=== PATIENT | male | born 1975 | race Caucasian/White ===

== ENCOUNTER → 2018-01-05 10:28 | Outpatient (CLI) | payer OTHER, SELFPAY ==
[2018-01-05 13:34] LABS: Anion Gap 12 (5-15); BUN 22 mg/dL (7-18); BUN/Creat Ratio 17.7 RATIO (10-20); Calcium,Total 8.9 mg/dL (8.5-10.1); Chloride 103 mmol/L (98-107); Cholesterol 184 mg/dL (200); Creatinine, Serum 1.24 mg/dL (0.70-1.30); EST Glomerular Filtration Rate 67 mL/min (>60); Est Glom Filt Rate - Afr Amer 81 mL/min (>60); Glucose 79 mg/dL (74-106); High Density Lipoprotein 75 mg/dL; Potassium 3.7 mmol/L (3.5-5.1); Sodium Level 138 mmol/L (136-145); Triglycerides 55 mg/dL; Very Low Density Lipoprotein 11 mg/dL (5-40)
== END ==
PROVIDERS: Family Provider Family Medicine; PCP Family Medicine; Visit Provider Family Medicine
DX: I10 Essential (primary) hypertension (principal)
CPT/HCPCS: 36415; 80048; 80061

== ENCOUNTER → 2018-07-08 09:43 | Outpatient (CLI) | payer OTHER, SELFPAY ==
[2018-07-08 12:37] LABS: Anion Gap 10 (5-15); BUN 19 mg/dL (7-18); Chloride 105 mmol/L (98-107); Creatinine, Serum 1.27 mg/dL (0.70-1.30); EST Glomerular Filtration Rate 65 mL/min (>60); Est Glom Filt Rate - Afr Amer 79 mL/min (>60); Glucose 104 mg/dL (74-106); Potassium 3.7 mmol/L (3.5-5.1); Sodium Level 141 mmol/L (136-145); T4 Total, Thyroxin 9.7 ug/dL (4.5-12.1); Thyroid Stim Hormone (TSH) 1.69 uIU/mL (0.358-3.74)
== END ==
PROVIDERS: Family Provider Family Medicine; PCP Family Medicine; Visit Provider Family Medicine
DX: I10 Essential (primary) hypertension (principal); E03.9 Hypothyroidism, unspecified
CPT/HCPCS: 36415; 80048; 84436; 84443

== ENCOUNTER → 2019-01-04 09:30 | Outpatient (CLI) | payer OTHER, SELFPAY ==
[2019-01-04 13:09] LABS: Anion Gap 9 (5-15); BUN 21 mg/dL (7-18); BUN/Creat Ratio 17.6 RATIO (10-20); Calcium,Total 9.3 mg/dL (8.5-10.1); Chloride 103 mmol/L (98-107); Creatinine, Serum 1.19 mg/dL (0.70-1.30); EST Glomerular Filtration Rate 70 mL/min (>60); Est Glom Filt Rate - Afr Amer 85 mL/min (>60); Glucose 85 mg/dL (74-106); Potassium 3.9 mmol/L (3.5-5.1); Sodium Level 136 mmol/L (136-145)
== END ==
PROVIDERS: Family Provider Family Medicine; PCP Family Medicine; Referring Provider Family Medicine; Visit Provider Family Medicine
DX: I10 Essential (primary) hypertension (principal)
CPT/HCPCS: 36415; 80048

== ENCOUNTER → 2019-07-19 10:21 | Outpatient (CLI) | payer OTHER, SELFPAY ==
[2019-07-19 12:58] LABS: Anion Gap 11 (5-15); BUN 20 mg/dL (7-18); BUN/Creat Ratio 14.8 RATIO (10-20); Calcium,Total 8.7 mg/dL (8.5-10.1); Chloride 111 mmol/L (98-107); Creatinine, Serum 1.35 mg/dL (0.70-1.30); EST Glomerular Filtration Rate 60 mL/min (>60); Est Glom Filt Rate - Afr Amer 73 mL/min (>60); Glucose 118 mg/dL (74-106); Sodium Level 143 mmol/L (136-145); T4 Total, Thyroxin 9.1 ug/dL (4.5-12.1); Thyroid Stim Hormone (TSH) 1.82 uIU/mL (0.358-3.74)
== END ==
PROVIDERS: Family Provider Family Medicine; PCP Family Medicine; Referring Provider Family Medicine; Visit Provider Family Medicine
DX: E03.9 Hypothyroidism, unspecified (principal); I10 Essential (primary) hypertension
CPT/HCPCS: 36415; 80048; 84436; 84443

== ENCOUNTER 2022-01-12 23:23 | Emergency (ER) | payer OTHER, SELFPAY ==
[2022-01-12 23:24] VITALS: BP 197/137; PULSE 115; RESP 16; TEMP 36; O2SAT 94; BMI 44.2
[2022-01-12 23:29] VITALS: BP 197/137; PULSE 114; RESP 16; O2SAT 96
--- NOTE | 2022-01-12 23:55 | EKG12_ITS ---
Test Reason : GEN ILL Blood Pressure : / mmHG Vent. Rate : 094 BPM Atrial Rate : 094 BPM P-R Int : 154 ms QRS Dur : 084 ms QT Int : 364 ms P-R-T Axes : 013 -25 088 degrees QTc Int : 455 ms Normal sinus rhythm Left ventricular hypertrophy with repolarization abnormality Abnormal ECG Confirmed by SOL DIAZ, FAISAL ([id number]), graphics editor CAROLE GONZALES ([id number]) on 01/13/2022 10:01:39 AM Referred By: CLARICE Confirmed By:FAISAL HORTON MD
--- NOTE | 2022-01-12 23:57 | EDS_ITS ---
HPI History of Present Illness Chief Complaint: General Illness Narrative Narrative: 46-year-old male presenting with lightheadedness and near syncope for the last few days. He also states that he feels a little bit short of breath. Patient feels nauseous. He states that mostly over the weekend he laid around and felt okay but when he went to work he started to feel like he was going to faint when he went upstairs. He has a history of hypertension which is untreated for at least a year. He states he was on lisinopril. He states he also has hypothyroidism and does not take anything for this either. He believes he used to be on Synthroid. This is also not been taken in about a year. Patient states he drinks Mountain Dew at work but at home he does not really do much caffeine. Patient is not had fever, chills, cough. He has not had diarrhea or constipation. [facility] Medical History Anxiety Hypertension Hypothyroidism Home Medications lisinopril 40 mg PO DAILY #30 tab 01/13/22 [Rx Last Taken Unknown] Allergy/AdvReac Type Severity Reaction Status Date / Time No Known Allergies Allergy Verified 01/12/22 23:24 Social History Smoking Status: Never smoker [facility] ED Constitutional Constitutional ED: Denies chills or fever(s) Eyes Eyes: Denies blurry vision or diplopia ENT ENT ED: Denies rhinorrhea or sore throat Cardiovascular Cardiovascular: Reports other Details: Near syncope ; Denies chest pain or palpitations Respiratory/Chest Respiratory/Chest: Reports dyspnea; Denies cough Gastrointestinal Gastrointestinal: Reports nausea; Denies abdominal pain, constipation, diarrhea or vomiting Genitourinary Genitourinary ED: Denies dysuria or hematuria Musculoskeletal Musculoskeletal: Denies arthralgias, back pain, myalgias or neck pain Integumentary Denies rash Neurologic Neurologic: Reports headache(s); Denies paresthesias or weakness Psychiatric Psychiatric: Denies anxiety or depression EXAM Physical Exam Const Vital Signs: 01/12/22 23:24 01/12/22 23:29 01/13/22 00:08 Temperature 96.8 F L Temperature Source Temporal Pulse Rate 115 H 114 H Respiratory Rate 16 16 Respiratory Effort Normal Respiratory Pattern Normal Blood Pressure 197/137 H 197/137 H Blood Pressure Mean 157 157 Pulse Ox 94 96 Oxygen Delivery Method Room Air Room Air Room Air 01/13/22 00:13 01/13/22 00:34 01/13/22 01:19 Temperature Temperature Source Pulse Rate 102 H 92 86 Respiratory Rate 18 24 H 21 H Respiratory Effort Respiratory Pattern Blood Pressure 200/137 H 161/114 H 156/115 H Blood Pressure Mean 158 129 128 Pulse Ox 94 93 92 Oxygen Delivery Method Room Air Room Air Room Air 01/13/22 02:19 Temperature Temperature Source Pulse Rate 87 Respiratory Rate 18 Respiratory Effort Respiratory Pattern Blood Pressure 144/92 H Blood Pressure Mean 109 Pulse Ox 92 Oxygen Delivery Method Room Air Positive obese and unkempt Constitutional Narrative: Has grayish chemicals on the legs and face from work. General Appearance ED: unkempt and NAD; Negative for pallor Nutritional Appearance: obese HEENT Reports moist mucous membranes Negative for trauma Eyes PERRL and EOMs intact bilaterally General Eye ED: Negative for pale conjunctiva Neck no lymphadenopathy and supple Resp normal respiratory effort and clear to auscultation bilaterally Cardio regular rate Rate: tachycardic GI normal to inspection, nondistended, normoactive bowel sounds Extremity General Extremety ED: Negative for edema or tenderness General Extremity: Negative for edema Neuro oriented x3 and CN's II-XII intact bilaterally Sensorium / Orientation: alert Psych mental status grossly normal Appearance: unkempt Skin no rashes or lesions noted General Skin Exam: Negative for pallor MDM MDM MDM Narrative Medical decision making narrative: Patient presenting with elevated blood pressure, lightheadedness, near syncope. He states that while climbing stairs at work he became lightheaded like he was going to faint and felt like he had to take a deep breath. He states that otherwise he does not have shortness of breath. He has not had a cough, fever, chills. He denies any sort of chest pain. Patient does state that he is noncompliant with his blood pressure medications and has not taken any Synthroid. His blood pressure was elevated at 200/137. He is given a dose of labetalol 20 mg IV. His EKG shows a normal s inus rhythm with a ventricular 94 bpm with LVH noted on my interpretation. Chest x-ray on my interpretation shows no acute cardiopulmonary process and the radiologist agree. CT of the brain is negative for acute intracranial pathology. CBC shows his white blood cell count is 9.4, hemoglobin 17.9, hematocrit 51.3, platelets 312. Creatinine slightly elevated at 1.42. In 2019 it was 1.35 so this is not a significant interval change. TSH, T3, T4 all within normal limits. BNP within normal limits 81.9. Patient's blood pressure did improve to 161/114. I will give him a second dose of labetalol 20 mg. I had a long discussion with him about compliance with blood pressure medications. He will need to keep a blood pressure diary. He was previously on lisinopril but does not know the dose based on his elevated blood pressure I will start him on lisinopril 40 mg p.o. daily. He will follow-up with his PCP outpatient medication adjustment. Blood pressure is now 144/92. Patient feels improved. At this point I will discharge the patient home to follow-up with his PCP. He is given return precautions. Impression: 1. Hypertension 2. Medical noncompliance 3. Near syncope Lab Data Attestation: I reviewed the patient's lab results. Labs: Laboratory Results - last 24 hr 01/13/22 01/13/22 01/13/22 00:05 00:05 00:05 WBC 9.4 RBC 5.91 Hgb 17.9 H Hct 51.3 MCV 86.8 MCH 30.3 MCHC 34.9 RDW Std Deviation 42.8 RDW Coeff of Marcia 13.4 Plt Count 312 MPV 9.2 Immature Gran % (Auto) 0.400 Neut % (Auto) 79.0 H Lymph % (Auto) 14.3 L Harding % (Auto) 4.7 Eos % (Auto) 1.0 Baso % (Auto) 0.6 Absolute Neuts (auto) 7.5 Absolute Lymphs (auto) 1.35 Nucleated RBC % 0 Sodium 136 Potassium 4.3 Chloride 105 Carbon Dioxide 26.0 Anion Gap 5 BUN 17 Creatinine 1.42 H Estim Creat Clear Calc 61.55 Est GFR (MDRD) Af Amer 68 Est GFR (MDRD) Non-Af 56 L BUN/Creatinine Ratio 12.0 Glucose 214 H Calcium 9.3 Troponin I High Sens 26 B-Natriuretic Peptide 81.9 TSH 3.25 Free T4 0.92 Free T3 pg/dL 2.7 Radiography Diagnostic Testing: Clinical Impression(s) from Imaging Studies Brain CT 01/12/22 23:58 IMPRESSION: Negative head/brain CT without intravenous contrast. Individualized dose optimization techniques were used for this CT. at 0035 Reported and signed by: Lino Nguyen MD Electronically Signed: Lino Nguyen MD at 0:34 EST Reading Location ID and State: [address] [place] [address] Tel , Service support , Chest X-Ray 01/13/22 00:01 IMPRESSION: No radiographic evidence of acute cardiopulmonary disease. at 0035 Reported and signed by: Lino Nguyen MD Electronically Signed: Lino Nguyen MD at 0:35 EST Reading Location ID and State: [facility] / [place] Tel , Service support , Discharge Plan Triage Chief Complaint: General Illness ED Provider: Jose Juan Masters Dx/Rx/DC Orders Instructions: ED Hypertension, Established Prescriptions: New lisinopril 40 mg tablet 40 mg PO DAILY Qty: 30 RF: 0 Primary Care Provider: Laure Campo Referrals: Laure Campo MD [Primary Care Provider] - Disposition Disposition: Home, Self Care Discharge Date/Time: 01/13/22 02:27
--- NOTE | 2022-01-12 23:58 | CT_ITS ---
EXAM: CT HEAD WITHOUT INTRAVENOUS CONTRAST : 1975 CLINICAL INDICATION: hypertension TECHNIQUE: Multiple axial images were obtained of the head without intravenous contrast. This CT exam was performed using one or more of the following dose reduction techniques: automated exposure control, adjustment of the mA and/or kV according to patient size, and/or use of iterative reconstruction technique. This report was created using [employer] report generation technology. COMPARISON: None. FINDINGS: BRAIN AND EXTRA-AXIAL SPACES: Unremarkable. No intra- or extra-axial hemorrhage. No evidence of acute infarct. No intracranial mass or mass effect. There is preservation of the lee/white matter interface. Posterior fossa structures are unremarkable. Ventricles are appropriate for age. No hydrocephalus. Basal cisterns are patent. BONES/JOINTS: Unremarkable. No discrete lytic or blastic abnormalities. SINUSES: Unremarkable as visualized. Clear. MASTOID AIR CELLS: Unremarkable. Clear. ORBITS: Visualized globes, extraocular muscles, optic nerves and retrobulbar fat appear unremarkable. CT/Brain/Head without Contrast IMPRESSION: Negative head/brain CT without intravenous contrast. Individualized dose optimization techniques were used for this CT. at 0035 Reported and signed by: Lino Nguyen MD Electronically Signed: Lino Nguyen MD at 0:34 EST ,
--- NOTE | 2022-01-13 00:01 | RAD_ITS ---
EXAM: XR CHEST, 1 VIEW : 1975 CLINICAL INDICATION: dyspnea TECHNIQUE: Frontal view of the chest. This report was created using [employer] report generation technology. COMPARISON: None. FINDINGS: LUNGS AND PLEURAL SPACES: Unremarkable. No consolidation or edema. No pneumothorax. No effusion. HEART: Unremarkable. Cardiac silhouette not enlarged. MEDIASTINUM: Central airways and mediastinal contour are unremarkable. BONES/JOINTS: Unremarkable. SOFT TISSUES: Unremarkable. RAD/Chest 1 View (Portable) IMPRESSION: No radiographic evidence of acute cardiopulmonary disease. at 0035 Reported and signed by: Lino Nguyen MD Electronically Signed: Lino Nguyen MD at 0:35 EST ,
[2022-01-13] MEDS: Labetalol (Prefilled) 20 MG/4 ML IV ×2 (00:10→01:18)
[2022-01-13 00:13] VITALS: BP 200/137; PULSE 102; RESP 18; O2SAT 94
[2022-01-13 00:17] LABS: Absolute Lymphocyte Count 1.35 X10^3/uL (0.83-4.51); Absolute Neutrophil Count 7.5 X10^3/uL (2.0-7.7); Basophil# 0.06 X10^3/uL; Basophil% 0.6 % (0-1); Eosinophil# 0.09 X10^3/uL; Hematocrit 51.3 % (40-54); Hemoglobin 17.9 g/dL (13.0-16.5); Lymphocyte # 1.35 X10^3/ul (0.83-4.51); Lymphocyte % 14.3 % (19-41); Mean Corp Hgb Conc 34.9 g/dL (32-36); Mean Corpuscular Hgb 30.3 pg (27.0-32.0); Mean Corpuscular Volume 86.8 fL (80-94); Mean Platelet Vol. 9.2 fl (6.2-12.0); Monocyte# 0.44 X10^3/uL; Monocyte% 4.7 % (0-10); NRBC Flagged by Analyzer 0 % (0-5); Neutrophil # 7.45 X10^3/uL (2.7-7.7); Platelet Count 312 K/mm3 (150-450); RBC Distribution Width CV 13.4 % (11.6-14.6); RBC Distribution Width SD 42.8 fl (35.1-43.9); Red Blood Count 5.91 M/mm3 (4.6-6.2); White Blood Count 9.4 K/mm3 (4.4-11.0)
[2022-01-13 00:34] VITALS: BP 161/114; PULSE 92; RESP 24; O2SAT 93
[2022-01-13 00:43] LABS: Anion Gap 5 (5-15); BUN 17 mg/dL (7-18); Calcium,Total 9.3 mg/dL (8.5-10.1); Chloride 105 mmol/L (98-107); Creatinine, Serum 1.42 mg/dL (0.70-1.30); EST Glomerular Filtration Rate 56 mL/min (>60); Est Glom Filt Rate - Afr Amer 68 mL/min (>60); Estimated Creatinine Clearance 61.55 ml/min; Free T3 2.7 pg/mL (2.18-3.98); Glucose 214 mg/dL (74-106); Potassium 4.3 mmol/L (3.5-5.1); Sodium Level 136 mmol/L (136-145); T4 Free Direct 0.92 ng/dL (0.76-1.46); Thyroid Stim Hormone (TSH) 3.25 uIU/mL (0.358-3.74); Troponin-I HS 26 pg/mL (3.0-78.0)
[2022-01-13 00:49] LABS: BNP,B-Type NATRIURETIC PEPTIDE 81.9 pg/mL (0-100)
[2022-01-13 01:19] VITALS: BP 156/115; PULSE 86; RESP 21; O2SAT 92
[2022-01-13 02:19] VITALS: BP 144/92; PULSE 87; RESP 18; O2SAT 92
== END 2022-01-13 02:27 | disposition home or self-care (01) ==
PROVIDERS: Emergency Provider Student in an Organized Health Care Education/Training Program; PCP Family Medicine; Visit Provider Student in an Organized Health Care Education/Training Program
DX: R55 Syncope and collapse (principal); Z91.19 Patient's noncompliance with other medical treatment and regimen; R42 Dizziness and giddiness; I10 Essential (primary) hypertension; E03.9 Hypothyroidism, unspecified; F41.9 Anxiety disorder, unspecified; Z79.899 Other long term (current) drug therapy; R06.02 Shortness of breath
CPT/HCPCS: 70450; 71045; 80048; 83880; 84439; 84443; 84481; 84484; 85025; 93005; 99284; A4216

== ENCOUNTER 2022-01-15 02:12 | Emergency (ER) | payer OTHER, SELFPAY ==
[2022-01-15 02:13] VITALS: BP 172/118; PULSE 102; RESP 15; TEMP 36.2; O2SAT 98; BMI 44.4
--- NOTE | 2022-01-15 03:01 | EKG12_ITS ---
Test Reason : DYSRHYTHMIA Blood Pressure : / mmHG Vent. Rate : 092 BPM Atrial Rate : 092 BPM P-R Int : 160 ms QRS Dur : 080 ms QT Int : 354 ms P-R-T Axes : 027 -26 079 degrees QTc Int : 437 ms Normal sinus rhythm Inferior infarct , age undetermined Abnormal ECG Confirmed by SOL DIAZ, FAISAL ([id number]), image editor CAROLE GONZALES ([id number]) on 01/16/2022 8:37:49 AM Referred By: SOLO Confirmed By:FAISAL HORTON MD
[2022-01-15] MEDS: cloNIDine HCl 0.2 MG Tablet PO (03:14)
[2022-01-15] MEDS: Labetalol (Prefilled) 20 MG/4 ML IV (03:19)
--- NOTE | 2022-01-15 03:48 | EX.ED.DYSGE1 ---
HPI History of Present Illness Chief Complaint: Hypertension Narrative Narrative: Patient is a 46-year-old male who was seen just 2 days ago for the same complaint. At that time he underwent chest x-ray head CT EKG basic blood work all which revealed no clinically significant findings and was discharged home on lisinopril. Patient states that he just filled the prescription and has only had 1 dose of it. He states this evening he was feeling palpitations and lightheadedness and checked his blood pressure and it was still elevated. He states that this concerned him and therefore he presents to the ER for repeat evaluation. He denies any illicit drug use or excessive stimulant use [facility] Medical History Anxiety Hypertension Hypothyroidism Home Medications lisinopril 40 mg PO DAILY #30 tab 01/13/22 [Rx Last Taken Unknown] metoprolol succinate 50 mg PO DAILY 30 Days #30 tab 01/15/22 [Rx Last Taken Unknown] Allergy/AdvReac Type Severity Reaction Status Date / Time No Known Allergies Allergy Verified 01/15/22 02:17 Social History Smoking Status: Never smoker [facility] ED Constitutional Constitutional ED: Denies chills or fever(s) ENT ENT ED: Denies sore throat Cardiovascular Cardiovascular: Reports palpitations; Denies chest pain Respiratory/Chest Respiratory/Chest: Denies cough or dyspnea Gastrointestinal Gastrointestinal: Denies abdominal pain, diarrhea, nausea or vomiting Genitourinary Genitourinary ED: Denies dysuria Musculoskeletal Musculoskeletal: Denies myalgias Integumentary Denies rash Neurologic Neurologic: Reports other Details: Positive lightheadedness ; Denies headache(s) Hematologic/Lymphatic Hematologic/Lymphatic: Denies easy bleeding or easy bruising EXAM Physical Exam Const Vital Signs: 01/15/22 02:13 01/15/22 02:18 01/15/22 03:56 Temperature 97.1 F L Temperature Source Temporal Pulse Rate 102 H Respiratory Rate 15 Respiratory Effort Normal Non-Labored Respiratory Pattern Normal Blood Pressure 172/118 H 152/114 H Blood Pressure Mean 136 126 Pulse Ox 98 Oxygen Delivery Method Room Air 01/15/22 04:30 01/15/22 04:35 01/15/22 04:52 Temperature Temperature Source Pulse Rate 75 78 Respiratory Rate 16 18 Respiratory Effort Respiratory Pattern Blood Pressure 171/119 H 155/101 H 144/101 H Blood Pressure Mean 136 119 Pulse Ox 96 Oxygen Delivery Method Positive well nourished and well developed General Appearance ED: well developed Eyes PERRL and EOMs intact bilaterally Neck supple Neck Narrative: No carotid bruit noted Resp normal respiratory effort and clear to auscultation bilaterally Cardio regular rate and regular rhythm Rate: other Other Details: Radial pulses are +2-4 bilaterally are equal and symmetric GI normal to inspection, nondistended, normoactive bowel sounds, non-tender, non-distended and no masses GI Narrative: No guarding or rigidity no pulsatile mass Auscultation: normoactive bowel sounds Palpation: soft Extremity normal to inspection Neuro oriented x3 and CN's II-XII intact bilaterally Neuro Narrative: NIH stroke scale score of 0 Sensorium / Orientation: alert Motor Exam: strength 5/5 throughout Psych Mood & Affect: anxious Skin no rashes or lesions noted MDM MDM MDM Narrative Medical decision making narrative: Patient presented to the ER hypertensive but otherwise awake and alert with normal neurologic exam and no findings to suggest stroke or hypertensive encephalopathy. He was just evaluated with head CT chest x-ray blood work 2 days ago always revealed no clinically significant finding. Moreover he is only had 1 dose of his lisinopril. Therefore do not feel there is need for repeat imaging or laboratory studies. An EKG was obtained because of the reported palpitations which showed normal sinus rhythm. Patient was medicated in the ER with labetalol and clonidine. His blood pressure reduced by approximately 25% and patient reported feeling better. Therefore at this time as he has no signs of endorgan damage and we have had improvement in his hypertension he does not need admitted or further evaluated. He will have metoprolol added to his lisinopril as it appears he will need more than 1 medication to control hypertension but is otherwise safe for discharge Discharge Plan Triage Chief Complaint: Hypertension ED Provider: Raymon Sanchez Dx/Rx/DC Orders Clinical Impression: Accelerated hypertension Instructions: ED Hypertension New Begin Treatment Prescriptions: New metoprolol succinate 50 mg tablet extended release 24 hr 50 mg PO DAILY 30 Days Qty: 30 RF: 0 No Action lisinopril 40 mg tablet 40 mg PO DAILY Qty: 30 RF: 0 Primary Care Provider: Laure Campo Referrals: Laure Campo MD [Primary Care Provider] - Activity Restrictions/Additional Instructions: Please continue your lisinopril as previously directed but add metoprolol also once a day for improved blood pressure control Disposition Disposition: Home, Self Care Discharge Date/Time: 01/15/22 04:53
[2022-01-15 03:56] VITALS: BP 152/114
[2022-01-15] MEDS: Labetalol 100 MG/20 ML Vial 20 MG IV (04:29)
[2022-01-15 04:30] VITALS: BP 171/119; PULSE 75; RESP 16
[2022-01-15 04:35] VITALS: BP 155/101
[2022-01-15 04:52] VITALS: BP 144/101; PULSE 78; RESP 18; O2SAT 96
--- NOTE | 2022-01-16 14:30 | CASEMGMT ---
LEROY LOVELACE ED follow-up: Date of ER visit: 01/15/2022 Presenting ER complaint: hypertension RN [place] placed call to patient's telephone number listed on demographics with no answer. Voice message left with call back information requesting return call if any questions, needs or concerns. LEROY Esparza CM
== END 2022-01-15 04:53 | disposition home or self-care (01) ==
PROVIDERS: Emergency Provider Emergency Medicine; PCP Family Medicine; Visit Provider Emergency Medicine
DX: I10 Essential (primary) hypertension (principal); E03.9 Hypothyroidism, unspecified; F41.9 Anxiety disorder, unspecified
CPT/HCPCS: 93005; 99283; A4216

== ENCOUNTER 2022-01-28 11:50 | Outpatient (CLI) | payer OTHER, SELFPAY ==
[2022-01-28 15:23] LABS: ALB/GLOB Ratio 0.8 RATIO (0.9-2.4); AST(SGOT) 27 U/L (15-37); Alanine Aminotransfer ALT/SGPT 39 U/L (16-61); Albumin, Serum 3.6 g/dL (3.2-5.0); Alkaline Phosphatase 90 U/L (45-117); Anion Gap 6 (5-15); BUN 21 mg/dL (7-18); BUN/Creat Ratio 16.7 RATIO (10-20); Calcium,Total 9.7 mg/dL (8.5-10.1); Chloride 104 mmol/L (98-107); Creatinine, Serum 1.26 mg/dL (0.70-1.30); EST Glomerular Filtration Rate 65 mL/min (>60); Est Glom Filt Rate - Afr Amer 78 mL/min (>60); Ferritin 283 ng/mL (26-388); Globulin 4.4 g/dL (2.2-4.2); Glucose 124 mg/dL (74-106); Iron 72 ug/dL (65-175); Iron Binding Capacity,Total 293 ug/dL (250-450); Potassium 4.4 mmol/L (3.5-5.1); Sodium Level 135 mmol/L (136-145)
[2022-01-29 12:14] LABS: Hemoglobin A1c 5.9 % (3.8-5.6)
[2022-01-30 10:06] LABS: Transferrin 232 mg/dL (177-329)
== END 2022-01-28 23:59 | disposition home or self-care (01) ==
LOC: MFPLAB 11:51
PROVIDERS: PCP Family Medicine; Referring Provider Family Medicine; Visit Provider Family Medicine
DX: R73.09 Other abnormal glucose (principal)
CPT/HCPCS: 36415; 80053; 82728; 83036; 83540; 83550; 84466

== ENCOUNTER 2022-02-03 12:00 | Outpatient (CLI) | payer OTHER, SELFPAY ==
[2022-02-03 15:38] LABS: Absolute Lymphocyte Count 2.28 X10^3/uL (0.83-4.51); Absolute Neutrophil Count 7.4 X10^3/uL (2.0-7.7); Basophil# 0.06 X10^3/uL; Basophil% 0.6 % (0-1); Eosinophil# 0.15 X10^3/uL; Eosinophils% 1.4 % (0-5); Hematocrit 50.8 % (40-54); Hemoglobin 16.5 g/dL (13.0-16.5); Lymphocyte # 2.28 X10^3/ul (0.83-4.51); Lymphocyte % 21.5 % (19-41); Mean Corp Hgb Conc 32.5 g/dL (32-36); Mean Corpuscular Hgb 29.6 pg (27.0-32.0); Mean Corpuscular Volume 91.2 fL (80-94); Mean Platelet Vol. 9.8 fl (6.2-12.0); Monocyte# 0.65 X10^3/uL; Monocyte% 6.1 % (0-10); NRBC Flagged by Analyzer 0 % (0-5); Neutrophil # 7.41 X10^3/uL (2.7-7.7); Platelet Count 341 K/mm3 (150-450); RBC Distribution Width CV 13.5 % (11.6-14.6); RBC Distribution Width SD 45.5 fl (35.1-43.9); Red Blood Count 5.57 M/mm3 (4.6-6.2); White Blood Count 10.6 K/mm3 (4.4-11.0)
== END 2022-02-03 23:59 | disposition home or self-care (01) ==
LOC: MFPLAB 12:02
PROVIDERS: PCP Family Medicine; Referring Provider Family Medicine; Visit Provider Family Medicine
DX: D75.1 Secondary polycythemia (principal)
CPT/HCPCS: 36415; 85025

== ENCOUNTER 2022-02-04 16:36 | Outpatient (CLI) | payer OTHER, SELFPAY ==
[2022-02-04 17:36] LABS: Absolute Lymphocyte Count 2.56 X10^3/uL (0.83-4.51); Absolute Neutrophil Count 8.9 X10^3/uL (2.0-7.7); Basophil# 0.07 X10^3/uL; Basophil% 0.6 % (0-1); Eosinophil# 0.09 X10^3/uL; Eosinophils% 0.7 % (0-5); Hematocrit 51.4 % (40-54); Hemoglobin 16.9 g/dL (13.0-16.5); Lymphocyte # 2.56 X10^3/ul (0.83-4.51); Lymphocyte % 20.3 % (19-41); Mean Corp Hgb Conc 32.9 g/dL (32-36); Mean Corpuscular Hgb 29.8 pg (27.0-32.0); Mean Corpuscular Volume 90.7 fL (80-94); Mean Platelet Vol. 9.6 fl (6.2-12.0); Monocyte# 0.89 X10^3/uL; Monocyte% 7.1 % (0-10); NRBC Flagged by Analyzer 0 % (0-5); Neutrophil # 8.94 X10^3/uL (2.7-7.7); Neutrophil % 70.8 % (47-70); Platelet Count 371 K/mm3 (150-450); RBC Distribution Width CV 13.7 % (11.6-14.6); RBC Distribution Width SD 45.7 fl (35.1-43.9); Red Blood Count 5.67 M/mm3 (4.6-6.2); White Blood Count 12.6 K/mm3 (4.4-11.0)
[2022-02-04 18:16] LABS: Hemoglobin A1c 5.9 % (3.8-5.6)
[2022-02-04 18:23] LABS: Anion Gap 7 (5-15); BUN 17 mg/dL (7-18); BUN/Creat Ratio 15.2 RATIO (10-20); Chloride 107 mmol/L (98-107); Creatinine, Serum 1.12 mg/dL (0.70-1.30); EST Glomerular Filtration Rate 74 mL/min (>60); Est Glom Filt Rate - Afr Amer 90 mL/min (>60); Glucose 108 mg/dL (74-106); Potassium 4.6 mmol/L (3.5-5.1); Sodium Level 139 mmol/L (136-145)
== END 2022-02-04 23:59 | disposition home or self-care (01) ==
LOC: MFPLAB 16:36
PROVIDERS: PCP Family Medicine; Referring Provider Family Medicine; Visit Provider Family Medicine
DX: D75.1 Secondary polycythemia (principal); R73.02 Impaired glucose tolerance (oral)
CPT/HCPCS: 36415; 80048; 83036; 85025

== ENCOUNTER → 2022-11-10 | Outpatient (CLI) | payer OTHER, SELFPAY ==
[2022-11-10 12:45] LABS: Anion Gap 9 (5-15); BUN 25 mg/dL (7-18); BUN/Creat Ratio 17.6 RATIO (10-20); Calcium,Total 9.5 mg/dL (8.5-10.1); Chloride 105 mmol/L (98-107); Cholesterol 191 mg/dL (200); Creatinine, Serum 1.42 mg/dL (0.70-1.30); EST Glomerular Filtration Rate 56 mL/min (>60); Est Glom Filt Rate - Afr Amer 68 mL/min (>60); Glucose 96 mg/dL (74-106); High Density Lipoprotein 56 mg/dL; PSA,Total - Annual Screen 0.37 ng/mL (0.00-4.00); Potassium 4.4 mmol/L (3.5-5.1); Sodium Level 140 mmol/L (136-145); Triglycerides 83 mg/dL; Very Low Density Lipoprotein 17 mg/dL (5-40)
== END | disposition home or self-care (01) ==
LOC: MTLAB 10:02
PROVIDERS: PCP Family Medicine; Referring Provider Family Medicine; Visit Provider Family Medicine
DX: Z00.00 Encounter for general adult medical examination without abnormal findings (principal); I10 Essential (primary) hypertension
CPT/HCPCS: 36415; 80048; 80061; 84153; G0103

== ENCOUNTER → 2023-12-10 | Outpatient (CLI) | payer OTHER, SELFPAY ==
--- OUTSIDE RECORDS SUMMARY | 2023-12-10 12:58 | XMS RPT_ITS | CCD ---
Author Name Unknown Address [address] [place] [address] Organization [facility] Care Team Providers Care Director Information Security Name Role Phone Laure Campo Primary Care Provider Encounters Encounter Date Encounter Type Care Provider Facility Start: 03-06-2022 End: 03-06-2022 Subsequent hospital visit by physician Mri [facility] Wstr (I-Stat/1.5t) Work Phone: Radiology Plan of Treatment Date Care Activity Detail Author Start: 07-09-2022 Influenza vaccination INFLUENZA (Sea son Ended) [facility] Start: 2018 COLOGUARD (FIT-DNA) COLOGUARD (FIT-D NA) [facility] Start: 2018 Colonoscopy COLONOSCOPY [facility] Start: 2018 COLORECTAL CANCER SCREENING COLORECTAL CANCER SCREENING [facility] Start: [address] COLONOGRAPHY [facility] Start: 2018 DIABETES SCREEN DIABETES SCREEN [facility] Start: 2018 FECAL OCCULT BLOOD FECAL OCCULT BLOO D [facility] Start: 2018 SIGMOIDOSCOPY SIGMOIDOSCOPY [facility] Start: 01-17-2008 LIPID SCREEN LIPID SCREEN [facility] Start: 01-17-1992 Urine microalbumin profile DTAP,TDAP ,TD (1 - Tdap) [facility] Start: 1991 HEPATITIS C SCREENING HEPATITIS C SC REENING [facility] Start: 1991 HIV SCREENING HIV SCREENING [facility] Start: 1985 Adult depression scr ning assessment DEPRESSION SCREENING [facility] Start: 1978 COVID-19 VACCINE (1) COVID-19 VACCIN E (1) [facility] Payers Date Payer Category Payer Private Health Insurance LOWELL SMITH [id number] 2021-Present [phone] [facility] [id number] [place] [address] Open Access [id number] Social History Date Type Detail Facility [facility] Start: 1975 Sex Assigned At Male C [facility] Progress note 03-06-2022 Note Date & Type Note Facility 03-06-2022 Note HNO ID: [id number] Author: LISA Garzon) Service: ? Author Type: Technologist Type: Progress Notes Filed: 03/06/2022 8:48 AM Note Text: RADIOLOGY SERVICE PROGRESS NOTE DATE OF SERVICE: March 06, 2022 TIME OF SERVICE: 8:40 am EVENT: EXAM/PROCEDURE NOT COMPLETED - Patient became claustrophobic, reaction was: Moderate. ADDITIONAL EVENT DETAILS: N/A SIGNATURE: LISA Garzon) PATIENT NAME: William Holm DATE: March 06, 2022 TIME: 8:48 AM PAGER/CONTACT #: [facility] History of Present illness Narrative 03-06-2022 LISA Garzon) - 03/06/2022 8:40 AM EDT Note Date & Type Note Facility 03-06-2022 History of Presen t illness Narrative RADIOLOGY SERVICE PROGRESS NOTE DATE OF SERVICE: March 06, 2022 TIME OF SERVICE: 8:40 am EVENT: EXAM/PROCEDURE NOT COMPLETED - Patient became claustrophobic, reaction was: Moderate. ADDITIONAL EVENT DETAILS: N/A SIGNATURE: RT Ryann(Yuriy) PATIENT NAME: William Holm DATE: March 06, 2022 TIME: 8:48 AM PAGER/CONTACT #: documented in this encounter [facility] Reason for visit Narrative Diagnostic Procedure Only (Routine) - Closed Note Date & Type Note Facility Referral ID Status Reason Start Date Expiration Date Visits Re quested Visits Authorized [id number] Closed 02/13/2022 05/14/2022 1 1 [facility] Summary Purpose Family History No Family History Records Found Advance Directives No Advanced Directives Records Found Additional Source Comments Source Comments (unrecognize d section and content) In the event this informatio n is protected by the [facility] Confidentiality of Alcohol and Drug Abuse Patient Records regulations: The Federal rules restrict any use of the information to criminally investigate or prosecute any alcohol or drug abuse patient.[facility] Care Teams (unrecognized sec tion and content) (unrecognized sect ion and content) No Status Records Found INFORMATION SOURCE (unrecogn ized section and content) FOR RECORDS PERTAINING TO PATIENTS WHO ARE OR HAVE BEEN ENROLLED IN A CHEMICAL DEPENDENCY/SUBSTANCEABUSE PROGRAM, SOME INFORMATION MAY BE OMITTED. This clinical summary was aggregated from multiple sources. Caution should be exercised in using it in the provision of clinical care. This summary normalizes information from multiple sources, and as a consequence, information in this document may materially change the coding, format and clinical context of patient data. In addition, data may be omitted in some cases. CLINICAL DECISIONS SHOULD BE BASED ON THE PRIMARY CLINICAL RECORDS. [employer] [facility]. provides no warranty or guarantee of the accuracy or completeness of information in this document.
[2023-12-10 13:15] LABS: PSA,Total - Annual Screen 0.37 ng/mL (0.00-4.00)
== END | disposition home or self-care (01) ==
LOC: MFPLAB 10:14
PROVIDERS: PCP Family Medicine; Visit Provider Family Medicine
DX: Z12.5 Encounter for screening for malignant neoplasm of prostate (principal)
CPT/HCPCS: 36415; 84153; G0103

== ENCOUNTER → 2024-06-12 | Outpatient (CLI) | payer OTHER, SELFPAY ==
[2024-06-12 10:17] LABS: Absolute Lymphocyte Count 2.75 X10^3/uL (0.83-4.51); Absolute Neutrophil Count 8.2 X10^3/uL (2.0-7.7); Basophil# 0.05 X10^3/uL; Basophil% 0.4 % (0-1); Eosinophil# 0.25 X10^3/uL; Eosinophils% 2.1 % (0-5); Hematocrit 48.7 % (40-54); Hemoglobin 15.5 g/dL (13.0-16.5); Lymphocyte # 2.75 X10^3/ul (0.83-4.51); Lymphocyte % 22.9 % (19-41); Mean Corp Hgb Conc 31.8 g/dL (32-36); Mean Corpuscular Hgb 29.5 pg (27.0-32.0); Mean Corpuscular Volume 92.8 fL (80-94); Mean Platelet Vol. 9.2 fl (6.2-12.0); Monocyte# 0.73 X10^3/uL; Monocyte% 6.1 % (0-10); NRBC Flagged by Analyzer 0 % (0-5); Neutrophil # 8.15 X10^3/uL (2.7-7.7); Neutrophil % 67.7 % (47-70); Platelet Count 341 K/mm3 (150-450); RBC Distribution Width CV 14.1 % (11.6-14.6); RBC Distribution Width SD 48.1 fl (35.1-43.9); Red Blood Count 5.25 M/mm3 (4.6-6.2)
[2024-06-12 11:24] LABS: Hemoglobin A1c 5.9 % (3.8-5.6)
[2024-06-12 12:36] LABS: Anion Gap 7 (5-15); BUN 18 mg/dL (7-18); BUN/Creat Ratio 14.8 RATIO (10-20); Calcium,Total 8.9 mg/dL (8.5-10.1); Chloride 109 mmol/L (98-107); Cholesterol 210 mg/dL (200); Creatinine, Serum 1.22 mg/dL (0.70-1.30); EST Glomerular Filtration Rate 67 mL/min (>60); Est Glom Filt Rate - Afr Amer 80 mL/min (>60); Glucose 123 mg/dL (74-106); High Density Lipoprotein 58 mg/dL; Potassium 4.2 mmol/L (3.5-5.1); Sodium Level 140 mmol/L (136-145); Thyroid Stim Hormone (TSH) 6.28 uIU/mL (0.358-3.74); Triglycerides 84 mg/dL; Very Low Density Lipoprotein 17 mg/dL (5-40)
== END | disposition home or self-care (01) ==
LOC: MFPLAB 09:32
PROVIDERS: PCP Family Medicine; Visit Provider Family Medicine
DX: I10 Essential (primary) hypertension (principal); E66.01 Morbid (severe) obesity due to excess calories; R73.02 Impaired glucose tolerance (oral); D75.1 Secondary polycythemia
CPT/HCPCS: 36415; 80048; 80061; 83036; 84443; 85025

== ENCOUNTER → 2025-10-08 | Outpatient (CLI) | payer OTHER, SELFPAY ==
[2025-10-08 18:18] LABS: AST(SGOT) 23 U/L (<=37); Alanine Aminotransfer ALT/SGPT 22 U/L (<=46); Albumin, Serum 3.8 g/dL (3.5-5.0); Alkaline Phosphatase 112 U/L (40-129); Anion Gap 12 (5-15); BUN 16 mg/dL (4-19); BUN/Creat Ratio 11.7 RATIO (10-20); Calcium,Total 9.1 mg/dL (7.6-11.0); Carbon Dioxide 22.9 mmol/L (21.0-32.0); Chloride 104 mmol/L (98-108); Cholesterol 185 mg/dL (<=200); Free T3 3.4 pg/mL (2.18-3.98); Globulin 3.8 g/dL (2.2-4.2); Glucose 117 mg/dL (70-99); Low Density Lipoprotein Calc. 116 mg/dL; Potassium 3.8 mmol/L (3.3-5.1); Triglycerides 78 mg/dL; Very Low Density Lipoprotein 16 mg/dL (5-40); cholesterol:hdl ratio screen 3.38
== END | disposition home or self-care (01) ==
LOC: MFPLAB 15:22
PROVIDERS: PCP Family Medicine; Visit Provider Family Medicine
DX: E03.9 Hypothyroidism, unspecified (principal); I10 Essential (primary) hypertension
CPT/HCPCS: 36415; 80053; 80061; 84439; 84443; 84481